=== PATIENT | female | born 1970 | race Caucasian/White ===

== ENCOUNTER 2017-07-19 05:41 | Inpatient (IN) | payer OTHER ==
[~2017-07-19] VITALS: Ht 172.7 cm; Wt 101.6 kg
[2017-07-19] MEDS ORDERED: ALPR0.5O4 PO (07:03)
[2017-07-19] MEDS ORDERED: ATOR20TA PO (07:03)
[2017-07-19] MEDS ORDERED: ESCI10TA PO (07:03)
[2017-07-19] MEDS ORDERED: LEVO0.0511 PO (07:03)
[2017-07-19] MEDS ORDERED: ceFAZolin 2,000 MG in NACL 0.9% 100 ML IV SCH (07:18)
[2017-07-19] MEDS ORDERED: DESFLURANE 240 ML BTL INH ONE (07:30)
[2017-07-19] MEDS ORDERED: SUCCINYLCHOLINE CHLORIDE 200 MG/10 ML VIAL IVP ONE (07:30)
[2017-07-19] MEDS ORDERED: KETOROLAC 30 MG/ML VIAL ONE (07:30)
[2017-07-19] MEDS ORDERED: PROPOFOL 200 MG/20 ML VIAL IV ONE (07:30)
[2017-07-19] MEDS ORDERED: NEOSTIGMINE 1:1000 10 MG/10 ML VIAL ONE (07:30)
[2017-07-19] MEDS ORDERED: DEXAMETHASONE 4 MG/ML VIAL ONE (07:30)
[2017-07-19] MEDS ORDERED: ROCURONIUM 50 MG/5 ML VIAL IV ONE (07:30)
[2017-07-19] MEDS ORDERED: GLYCOPYRROLATE 0.2 MG/ML VIAL ONE (07:30)
[2017-07-19] MEDS ORDERED: ONDANSETRON 4 MG/2 ML VIAL ONE (07:30)
[2017-07-19] MEDS ORDERED: ONDANSETRON 4 MG/2 ML VIAL IVP PRN (07:35)
[2017-07-19] MEDS ORDERED: ACETAMINOPHEN/CODEINE 300/30MG 1 TAB PO PRN (07:35)
[2017-07-19] MEDS ORDERED: BUPIVACAINE-MPF 0.25% 30 ML VIAL INJ ONE (07:44)
[2017-07-19] MEDS ORDERED: BUPIVACAINE-MPF 0.5% 30 ML VIAL INJ ONE (07:45)
[2017-07-19] MEDS ORDERED: fentaNYL 0.05 MG/ML VIAL ONE (07:54)
[2017-07-19] MEDS ORDERED: MORPHINE SULFATE 4 MG/ML SYR ONE ×2 (07:54→09:06)
[2017-07-19] MEDS ORDERED: MIDAZOLAM 2 MG/2 ML VIAL ONE (07:54)
[2017-07-19 08:05] LABS: ALBUMIN 3.5 g/dL (3.4-5.0); ANION GAP 11.9 (8-16); CARBON DIOXIDE 26.1 mmol/L (21-32); CREATININE 0.8 mg/dL (0.6-1.3); TOTAL BILIRUBIN 0.4 mg/dL (0.0-1.0)
[2017-07-19] MEDS ORDERED: MIDAZOLAM 2 MG/2 ML VIAL IV ONE (08:30)
[2017-07-19] MEDS ORDERED: METOCLOPRAMIDE 10 MG/2 ML INJ VIAL IVP PRN (08:30)
[2017-07-19] MEDS ORDERED: MORPHINE SULFATE 2 MG/ML SYR IVP PRN (08:30)
[2017-07-19] MEDS ORDERED: MORPHINE SULFATE 4 MG/ML SYR IVP PRN ×2 (08:30)
[2017-07-19] MEDS ORDERED: MORPHINE SULFATE 4 MG/ML SYR IVP ONE (10:20)
[2017-07-19 12:00] VITALS: BP 124/76
--- NOTE | 2017-07-19 12:00 | NUR ---
PATIENT ARRIVED TO THE UNIT. PATIENT AWAKE, ALERT AND ORIENTED. PATIENT ON ROOM AIR. NO S/S OF DISTRESS NOTED. NO SOB. PATIENT REPORTS TOLERABLE PAIN AT THIS TIME. DRESSING NOTED TO THE LOWER ABD. INCISION CLEAN DRY AND INTACT. IV LINE NOTED TO THE LEFT HAND, INTACT AND ASYMPTOMATIC. VITAL SIGNS STABLE. BED LOWERED WITH CALL LIGHT WITHIN REACH. WILL CONTINUE TO MONITOR
--- NOTE | 2017-07-19 13:31 | NUR ---
CM NOTE INITIAL REVIEW FAXED TO [facility] [phone] [place] PH# [phone] [place] PH# [phone]
[2017-07-19 13:40] VITALS: BP 121/74
[2017-07-19] MEDS: MORPHINE SULFATE 4 MG/ML SYR IM/IVP PRN ×2 (13:42→20:23)
--- NOTE | 2017-07-19 16:30 | NUR ---
RECEIVED PATIENT REPORT FROM NYDIA MARSHALL. PATIENT AWAKE AND ALERT. NO S/S OF DISTRESS NOTED. DENIES PAIN OR DISCOMFORT. WILL CONTINUE TO MONITOR
[2017-07-19 16:34] VITALS: BP 124/68
--- NOTE | 2017-07-19 17:00 | NUR ---
PT HAS ABD DRESSING ON THE LOWER ABD. DRESSING INTACT, CLEAN AND DRY.
--- NOTE | 2017-07-19 19:30 | NUR ---
ENDORSED PT TO NIGHT RN. PT IS IN STABLE CONDITION. PT C/O PAIN 01/14 AND WANTS SOMETHING FOR SLEEPING. NIGHT RN IS AWARE.
--- NOTE | 2017-07-19 19:31 | NUR ---
RECD. RESTING IN BED, AWAKE, A/OX4. RESPIRATION EVEN AND UNLABORED. IV SALINE LOCK AT THE LEFT HAND G20, PATENT AND INTACT. INCISION IN THE LOWER ABDOMEN COVERED WITH DRESSING, DRY AND INTACT. STATED TOLERATING CLEAR LIQUID DIET, AMBULATING AND ABLE TO VOID FREELY TWICE ALREADY. PAIN IN THE SITE 08/16, TOLERABLE. PLAN OF CARE FOR THE SHIFT DISCUSSED. VERBALIZED UNDERSTANDING. WANTS SOMETHING FOR SLEEP, WILL CALL
[2017-07-19 20:25] VITALS: BP 123/71
--- NOTE | 2017-07-19 22:30 | NUR ---
COMPLAINED THAT MORPHINE IS NOT WORKING FOR HER PAIN, WANTS A STRONGER MEDICATION, WILL CALL
[2017-07-19] MEDS ORDERED: TEMAZEPAM 15 MG CAP PO PRN (22:55)
[2017-07-19] MEDS ORDERED: HYDROmorphone PFS 2 MG/ML SYR IVP PRN (23:50)
[2017-07-20 00:13] VITALS: BP 131/71
--- NOTE | 2017-07-20 00:19 | NUR ---
MEDICATED WITH DILAUDID 1 MG IVP BY JOANNA MOSES ORDERED.
--- NOTE | 2017-07-20 00:50 | NUR ---
STATED FEELING MUCH BETTER ALTHOUGH PAIN DOES NOT COMPLETELY GO AWAY.
--- NOTE | 2017-07-20 01:28 | NUR ---
UNABLE TO SLEEP, MEDICATED WITH RESTORIL 30 MG. PO ORDERED.
--- NOTE | 2017-07-20 02:28 | NUR ---
SLEEPING COMFORTABLY IN BED.
[2017-07-20 04:00] VITALS: BP 125/68
--- NOTE | 2017-07-20 06:30 | NUR ---
DR. Jada BARON ORDERED TO CHANGE CLEAR LIQUID TO REGULAR DIET.
[2017-07-20 06:54] LABS: BASOPHILS # (AUTO) 0.2 K/uL (0.00-0.22); BASOPHILS % (AUTO) 1.3 % (0.0-2.0); EOSINOPHILS # (AUTO) 0.1 K/uL (0-0.4); EOSINOPHILS % (AUTO) 0.5 % (0.0-4.0); HEMATOCRIT 38.8 % (36-48); HEMOGLOBIN 13.5 g/dL (12.0-16.0); LYMPHOCYTES % (AUTO) 12.6 % (20.5-51.1); MEAN CORPUSCULAR HEMOGLOBIN 30 pg (27-31); MEAN CORPUSCULAR HGB CONC 35 g/dL (33-37); MEAN CORPUSCULAR VOLUME 87 fL (80-94); MONOCYTES # (AUTO) 0.9 K/uL (0.8-1.0); NEUTROPHILS # (AUTO) 12.4 K/uL (1.8-7.7); NEUTROPHILS % (AUTO) 79.6 % (42.2-75.2); PLATELET COUNT (AUTO) 240 K/uL (140-450); RED BLOOD CELL COUNT(AUTO) 4.45 MIL/uL (4.20-5.40); RED CELL DISTRIBUTION WIDTH 11.9 % (11.6-13.7); WHITE BLOOD COUNT (AUTO) 15.6 K/uL (4.8-10.8)
--- NOTE | 2017-07-20 07:04 | NUR ---
CONDITION REMAIN STABLE. WILL ENDORSE TO AM NURSE FOR CONTINUITY OF CARE.
--- NOTE | 2017-07-20 07:25 | NUR ---
RECEIVED REPORT FROM ASSOCIATE ARTISTIC DIRECTOR NURSE, PT IS SLEEPING IN BED BUT EASILY AWAKEN, PT IS A/OX4, AMBULATORY, IV IS ON THE LEFT HAND, PATENT, INTACT, FLUSHING WELL, PT HAS ABDOMINAL DRESSING, PT IS S/P OVARIAN CYST REMOVAL ON 07/19/[address] BARON, NO S/S OF RESPIRATORY DISTRESS OR DISCOMFORT NOTED, DISCUSSED PLAN OF CARE WITH PATIENT, PT VERBALIZED UNDERSTANDING, CALL LIGHT IS WITHIN REACH, WILL CONTINUE TO MONITOR.
[2017-07-20 08:00] VITALS: BP 109/66
--- NOTE | 2017-07-20 09:03 | NUR ---
PATIENT HAS BEEN SCREENED AND CATEGORIZED LOW NUTRITION RISK. PATIENT WILL BE SEEN WITHIN 7 DAYS OF ADMISSION. 07/26/[address]
--- NOTE | 2017-07-20 10:37 | NUR ---
PT IS RESTING IN BED WATCHING TV, CALL LIGHT IS WITHIN REACH.
--- NOTE | 2017-07-20 12:21 | NUR ---
PAGED DR. BARON TO ASK HIM IF PATIENT WAS GOING TO BE DISCHARGED.
--- NOTE | 2017-07-20 12:25 | NUR ---
RECEIVED PHONE CALL FROM DR. BARON, PER DR. BARON PATIENT IS OKAY TO BE DISCHARGED HOME AND PATIENT WAS GIVEN A PRESCRIPTION AT HIS OFFICE BEFORE SURGERY.
--- NOTE | 2017-07-20 13:12 | NUR ---
DISCHARGE INSTRUCTIONS GIVEN, ID WRIST BAND REMOVED, IV REMOVED, CATHETER TIP INTACT.
--- NOTE | 2017-07-20 13:38 | NUR ---
PT STABLE UPON DISCHARGE, ACCOMPANIED BY FAMILY MEMBER.
--- NOTE | 2017-07-20 14:16 | NUR ---
CM NOTE CONCURRENT REVIEW FAXED TO [facility] [phone] [place] PH# [phone] [place] PH# [phone]
== END 2017-07-20 13:38 | disposition home or self-care (01) | DRG 513 ==
LOC: MMU 05:41 → MTU 12:06
PROVIDERS: ADMIT Obstetrics & Gynecology; ATTEND Obstetrics & Gynecology
PROC: 0UDB7ZZ Extraction of Endometrium, Via Natural or Artificial Opening (ICD-10-PCS; principal; 2017-07-19 07:30)
PROC: 0UB10ZZ Excision of Left Ovary, Open Approach (ICD-10-PCS; 2017-07-19 07:30)
DX: N83.202 Unspecified ovarian cyst, left side (principal); E66.01 Morbid (severe) obesity due to excess calories; Z68.34 Body mass index [BMI] 34.0-34.9, adult; N92.1 Excessive and frequent menstruation with irregular cycle; G89.29 Other chronic pain; E78.5 Hyperlipidemia, unspecified; E03.9 Hypothyroidism, unspecified; F41.9 Anxiety disorder, unspecified; F32.9 Major depressive disorder, single episode, unspecified
CPT/HCPCS: 36415; 80053; 85025; 86886; 86900; 86901; 87081; 93005; J0330; J0690; J1100; J1170; J1885; J2250; J2270; J2405; J2704; J2710; J3010; J3490; J7030; J7060; J7120

== ENCOUNTER 2018-06-08 05:57 | Day surgery (SDC) | payer OTHER ==
[~2018-06-08] VITALS: Ht 170.2 cm; Wt 108.9 kg
[~2018-06-08 05:57] MED LIST: ALPR0.5O4 PO; ATOR20TA PO; ESCI10TA PO; LEVO0.0511 PO
[2018-06-08] MEDS ORDERED: LEVO0.155 PO (07:04)
[2018-06-08] MEDS ORDERED: ESCI20TA PO (07:04)
[2018-06-08] MEDS ORDERED: fentaNYL 0.05 MG/ML VIAL ONE (07:44)
[2018-06-08] MEDS ORDERED: MIDAZOLAM 2 MG/2 ML VIAL ONE (07:44)
[2018-06-08] MEDS ORDERED: MIDAZOLAM 2 MG/2 ML VIAL IVP ONE ×2 (08:25→09:05)
== END 2018-06-08 09:20 | disposition home or self-care (01) ==
LOC: MDS 05:57 → MMU 05:59 → MDS 09:20
PROVIDERS: ATTEND Internal Medicine Gastroenterology
DX: K21.0 Gastro-esophageal reflux disease with esophagitis (principal); K44.9 Diaphragmatic hernia without obstruction or gangrene; K31.84 Gastroparesis; F41.9 Anxiety disorder, unspecified; E78.5 Hyperlipidemia, unspecified; E03.9 Hypothyroidism, unspecified; F32.9 Major depressive disorder, single episode, unspecified; E66.01 Morbid (severe) obesity due to excess calories; Z68.37 Body mass index [BMI] 37.0-37.9, adult; Z98.890 Other specified postprocedural states; Z87.891 Personal history of nicotine dependence; Z90.722 Acquired absence of ovaries, bilateral; Z80.0 Family history of malignant neoplasm of digestive organs; Z79.899 Other long term (current) drug therapy
CPT/HCPCS: 36415; 43239; 86677; J2250; J3010